=== PATIENT | female | born 1990 | race African-American/Black ===

== ENCOUNTER 2019-01-05 10:20 | Emergency (ER) | payer OTHER ==
[2019-01-05] MEDS ORDERED: ACETAMINOPHEN 325 MG TABLET ONE (11:16)
[2019-01-05 12:33] LABS: Urine Blood TRACE (NEG); Urine Glucose NEGATIVE (NEG); Urine Protein 1+ (NEG)
--- NOTE | 2019-01-05 13:02 | RAD REPORT ---
EXAM DESCRIPTION: RAD - Chest Pa And Lat (2 Views) - 01/05/2019 12:56 pm CLINICAL HISTORY: FEVER Chest pain. COMPARISON: No comparisons FINDINGS: A small opacity seen in the posterior gutter on the lateral view, likely representing deve loping infiltrate/. The lungs are otherwise clear. The heart is normal in size. No displaced fracture s.
--- NOTE | 2019-01-05 13:21 | EDPHYS ---
Physician Documentation [facility] Name: Talisha Shannon Age: 28 yrs Sex: Female : 1990 Arrival Date: 01/05/2019 Time: 10:24 Bed 12 Private MD: ED Physician Kirby Mart HPI: 01/05 10:57 This 28 yrs old Black Female presents to ER via Ambulatory with complaints of Flu jmm Symptoms. 10:57 The patient or guardian reports cough. Onset: The symptoms/episode began/occurred jmm gradually, 6 day(s) ago. Modifying factors: The symptoms are alleviated by nothing. the symptoms are aggravated by nothing. This is a 28 year old female with no chronic medical conditions that presents to the ED with complaints of fever, body aches, cough, sore throat beginning this past Monday. Patient states she developed mild abdominal pain earlier today which has since subsided. . 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 - Social history:: Smoking status: Patient/guardian denies using tobacco. - Ebola Screening: : No symptoms or risks identified at this time. ROS: 10:57 Constitutional: Positive for body aches, fever. jmm 10:57 ENT: Positive for ear pain, sore throat. 10:57 Respiratory: Positive for cough. 10:57 Abdomen/GI: Positive for abdominal pain. 10:57 All other systems are negative. Exam: 10:57 Head/Face: atraumatic. Eyes: EOMI, no conjunctival erythema appreciated ENT: Moist jmm Mucus Membranes Neck: Trachea midline, Supple Chest/axilla: Normal chest wall appearance and motion. 10:57 Constitutional: The patient appears in no acute distress, alert, awake. 10:57 Cardiovascular: Rate: normal, Rhythm: regular. 10:57 Respiratory: the patient does not display signs of respiratory distress, Respirations: normal, Breath sounds: are clear throughout. 10:57 Abdomen/GI: Inspection: abdomen appears normal, Bowel sounds: normal, Palpation: abdomen is soft and non-tender. 10:57 Back: ROM is normal. 10:57 Musculoskeletal/extremity: ROM: intact in all extremities. 10:57 Skin: Appearance: Color: normal in color. 10:57 Neuro: Orientation: is normal, Mentation: is normal, Memory: is normal. 10:57 Psych: Behavior/mood is pleasant, cooperative. Vital Signs: 10:33 BP 136 / 84; Pulse 102; Resp 16 S; Temp 103.1(O); Pulse Ox 98% on R/A; Weight 91.17 kg aa5 (R); Height 5 ft. 7 in. (170.18 cm) (R); Pain 5/10; 14:00 BP 130 / 80; Pulse 97; Resp 18; Temp 100.9; Pulse Ox 98% on R/A; dm5 10:33 Body Mass Index 31.48 (91.17 kg, 170.18 cm) aa5 MDM: 10:57 Patient medically screened. [facility] 13:18 Data reviewed: vital signs, nurses notes. Counseling: I had a detailed discussion with [facility] the patient and/or guardian regarding: the historical points, exam findings, and any diagnostic results supporting the discharge/admit diagnosis, radiology results, the need for outpatient follow up, to return to the emergency department if symptoms worsen or persist or if there are any questions or concerns that arise at home. 13:18 Refusal of service: The patient/guardian displays adequate decision making capability [facility] and despite a detailed discussion of alternatives, benefits, risks, and consequences refuses: rocephin. 13:18 ED course: Patient is alert and non toxic in appearance in the ED> Neck is supple. No [facility] signs of resp distress. No abdominal pain on palpation appreciated. Patient declined IM antibiotics. Patient given strict return precautions. patient understood and agrees with the plan of care. . 01/05 10:58 Order name: Flu; Complete Time: 12:21 [facility] 01/05 10:58 Order name: Strep; Complete Time: 11:47 [facility] 01/05 10:58 Order name: Chest Pa And Lat (2 Views) XRAY; Complete Time: 13:10 [facility] 01/05 11:38 Order name: Urine Dipstick--Ancillary (enter results); Complete Time: 12:39 eb 01/05 11:38 Order name: Urine --Ancillary (enter results); Complete Time: 12:39 01/05 11:48 Order name: Throat Culture [facility] 01/05 10:58 Order name: Urine Dipstick-Ancillary (obtain specimen); Complete Time: 11:47 [facility] Administered Medications: 12:00 Drug: Tylenol 650 mg Route: PO; aa5 14:00 Follow up: Response: No adverse reaction; Temperature is decreased aa5 13:18 CANCELLED (Patient Refused): Rocephin (cefTRIAXone) 1 grams IM once [facility] Disposition: 14:28 Co-signature as Attending Physician, Kirby Mart MD. rn Disposition: 01/05/19 13:19 Discharged to Home. Impression: Pneumonia. - Condition is Stable. - Discharge Instructions: Community-Acquired Pneumonia, Adult. - Prescriptions for Zithromax Z- Ajay 250 mg Oral Tablet - take 1 tablet by ORAL route as directed for 5 days Day 1 - take two (2) tablets one time. Day 2, 3, 4 , 5 take one (1) tablet once daily.; 6 tablet. - Work release form, Medication Reconciliation Form, Thank You Letter, Antibiotic Education, Prescription Opioid Use form. - Follow up: Private Physician; When: 2 - 3 days; Reason: Recheck today's complaints, Continuance of care, Re-evaluation by your physician. Follow up: Isiah Bonilla DO; When: 2 - 3 days; Reason: Recheck today's complaints, Continuance of care, Re-evaluation by your physician. Follow up: Suleman Charles MD; When: 2 - 3 days; Reason: Recheck today's complaints, Continuance of care, Re-evaluation by your physician. Follow up: Jonel Zelaya MD; When: 2 - 3 days; Reason: Recheck today's complaints, Continuance of care, Re-evaluation by your physician. Signatures: Dispatcher [employer] [facility] Modesta Dolan, RN RN dm5 Robert Faustin PA PA jmm Nieto, Roman, MD MD rn Calderon, Audri, RN RN aa5 Corrections: (The following items were deleted from the chart) 13:18 13:12 Rocephin (cefTRIAXone) 1 grams IM once ordered. [facility] 14:15 13:19 01/05/2019 13:19 Discharged to Home. Impression: Pneumonia. Condition is Stable. dm5 Forms are Medication Reconciliation Form, Thank You Letter, Antibiotic Education, Prescription Opioid Use. Follow up: Private Physician; When: 2 - 3 days; Reason: Recheck today's complaints, Continuance of care, Re-evaluation by your physician. Follow up: Isiah Bonilla; When: 2 - 3 days; Reason: Recheck today's complaints, Continuance of care, Re-evaluation by your physician. Follow up: Suleman Charles; When: 2 - 3 days; Reason: Recheck today's complaints, Continuance of care, Re-evaluation by your physician. Follow up: Jonel Zelaya; When: 2 - 3 days; Reason: Recheck today's complaints, Continuance of care, Re-evaluation by your physician. ileana
--- NOTE | 2019-01-05 13:21 | ER ---
Nurse's Notes [facility] Name: Talisha Shannon Age: 28 yrs Sex: Female : 1990 Arrival Date: 01/05/2019 Time: 10:24 Bed 12 Private MD: Diagnosis: Pneumonia Presentation: 01/05 10:31 Presenting complaint: Patient states: sore throat, slight cough, chills that began 2-3 aa5 days ago. Pt states "I also have a headache". Transition of care: patient was not received from another setting of care. Onset of symptoms was December 2018. Risk Assessment: Do you want to hurt yourself or someone else? Patient reports no desire to harm self or others. Care prior to arrival: None. 10:31 Method Of Arrival: Ambulatory aa5 10:31 Acuity: ZOHREH 4 aa5 10:31 Initial Sepsis Screen: Does the patient meet any 2 criteria? Temp <36.0*C (96.8*F)) or aa5 > 38.3*C (100.9*F). HR > 90 bpm. Yes Does the patient have a suspected source of infection? No. Patient's initial sepsis screen is negative. 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 - Social history:: Smoking status: Patient/guardian denies using tobacco. - Ebola Screening: : No symptoms or risks identified at this time. Screenin:40 Abuse screen: Denies threats or abuse. Nutritional screening: No deficits noted. aa5 Tuberculosis screening: No symptoms or risk factors identified. Fall Risk None identified. Assessment: 10:35 General: Appears comfortable, Behavior is calm, cooperative. Pain: Complains of pain in aa5 forehead Quality of pain is described as aching. Neuro: Level of Consciousness is awake, alert, obeys commands, Oriented to person, place, time, situation, Senior Grants Officer are equal bilaterally Moves all extremities. Gait is steady, Speech is normal, Facial symmetry appears normal, Pupils are PERRLA, Reports headache frontal area. Cardiovascular: Heart tones S1 S2 present Rhythm is regular. Respiratory: Reports cough Airway is patent Respiratory effort is even, unlabored, Respiratory pattern is regular, symmetrical, Breath sounds are clear bilaterally. GI: No signs and/or symptoms were reported involving the gastrointestinal system. : No signs and/or symptoms were reported regarding the genitourinary system. EENT: Reports sore throat . Derm: Skin is dry, Skin is normal, Skin temperature is warm. Musculoskeletal: Range of motion: intact in all extremities. 11:07 Reassessment: Pt refused Tylenol at this time, pt states "I want to wait to know what's aa5 wrong with me before I take any medications". Pt was educated about risks if temperature continues to increase, pt states "I just want to wait" . 11:09 Reassessment: Pt in restroom attempting urine specimen collection at this time. . aa5 12:00 Reassessment: Patient and/or family updated on plan of care and expected duration. Pain aa5 level reassessed. Awaiting chest x-ray results. . Neuro: Level of Consciousness is awake, alert, obeys commands, Oriented to person, place, time, situation. Respiratory: Airway is patent Respiratory effort is even, unlabored, Respiratory pattern is regular, symmetrical. Derm: Skin is dry, Skin is normal, Skin temperature is warm. 14:13 Neuro: Level of Consciousness is awake, alert, obeys commands, Oriented to person, aa5 place, time, situation. Respiratory: Airway is patent Respiratory effort is even, unlabored, Respiratory pattern is regular, symmetrical. Derm: Skin is dry, Skin is normal, Skin temperature is warm. Vital Signs: 10:33 BP 136 / 84; Pulse 102; Resp 16 S; Temp 103.1(O); Pulse Ox 98% on R/A; Weight 91.17 kg aa5 (R); Height 5 ft. 7 in. (170.18 cm) (R); Pain 5/10; 14:00 BP 130 / 80; Pulse 97; Resp 18; Temp 100.9; Pulse Ox 98% on R/A; dm5 10:33 Body Mass Index 31.48 (91.17 kg, 170.18 cm) aa5 ED Course: 10:24 Patient arrived in ED. mr 10:31 Arm band placed on. aa5 10:31 Patient has correct armband on for positive identification. Call light in reach. aa5 10:32 Triage completed. aa5 10:35 Emily Cruz, RN is Primary Nurse. aa5 10:35 Robert Faustin PA is PHCP. jmm 10:35 Kirby Mart MD is Attending Physician. jmm 11:47 Urine collected: clean catch specimen, cloudy, arlin colored. jb1 12:17 Throat Culture Sent. jp3 12:57 Chest Pa And Lat (2 Views) XRAY In Process Unspecified. EDMS 13:19 Isiah Bonilla DO is Referral Physician. jmm 13:19 Suleman Charles MD is Referral Physician. jmm 13:19 Jonel Zelaya MD is Referral Physician. jmm 14:13 No provider procedures requiring assistance completed. Patient did not have IV access aa5 during this emergency room visit. Administered Medications: 12:00 Drug: Tylenol 650 mg Route: PO; aa5 14:00 Follow up: Response: No adverse reaction; Temperature is decreased aa5 13:18 CANCELLED (Patient Refused): Rocephin (cefTRIAXone) 1 grams IM once jm Outcome: 13:19 Discharge ordered by MD. jmm 14:13 Discharged to home ambulatory. aa5 14:13 Condition: stable 14:13 Discharge instructions given to patient, Instructed on discharge instructions, follow up and referral plans. medication usage, Demonstrated understanding of instructions, follow-up care, medications, Prescriptions given X 1. 14:15 Patient left the ED. dm5 Signatures: Dispatcher [employer] EDMS Uziel Nevarez jb1 Modesta Dolan, RN RN dm5 Robert Faustin PA PA [facility] [employer] mr Emily Cruz, RN RN aa5 Stoney Hart jp3 Corrections: (The following items were deleted from the chart) 10:35 10:31 Acuity: ZOHREH 3 aa5 aa5
== END 2019-01-05 14:15 | disposition home or self-care (01) ==
LOC: ER 10:20
DX: J18.9 Pneumonia, unspecified organism (principal)
CPT/HCPCS: 71046; 81003; 81025; 87070; 87081; 87804; 99284